=== PATIENT | male | born 1970 | race Caucasian/White ===

== ENCOUNTER 2023-06-26 18:13 | Emergency (ER) | payer BC ==
[~2023-06-26] VITALS: Ht 172.7 cm; Wt 82.0 kg
[2023-06-26 18:17] VITALS: TEMP 98.6; O2SAT 99
[2023-06-26 18:45] VITALS: BP 166/101; PULSE 74; RESP 16
[2023-06-26] MEDS ORDERED: BACITRACIN ZINC OINT UDPKT TOP ONE (18:45)
[2023-06-26] MEDS ORDERED: HYDROCODONE/ACETAMINOPHEN 5/325MG TABLET PO ONE (18:45)
[2023-06-26] MEDS ORDERED: IBUP-2029 MT (19:28)
[2023-06-26] MEDS ORDERED: MUPI15CR11 TP (19:28)
[2023-06-26] MEDS ORDERED: CEPH500T MT (19:28)
[2023-06-26] MEDS ORDERED: T3 PO (19:28)
== END 2023-06-26 19:46 | disposition home or self-care (01) ==
LOC: ER 18:13
DX: S80.812A Abrasion, left lower leg, initial encounter (principal); E11.9 Type 2 diabetes mellitus without complications; I10 Essential (primary) hypertension; Z79.899 Other long term (current) drug therapy; V49.49XA Driver injured in collision with other motor vehicles in traffic accident, initial encounter; Y93.89 Activity, other specified; Y92.89 Other specified places as the place of occurrence of the external cause; Y99.8 Other external cause status
CPT/HCPCS: 99283